=== PATIENT | female | born 1995 | race Caucasian/White ===

== ENCOUNTER 2018-09-15 08:00 | Outpatient (CLI) | payer OTHER ==
[2018-09-15 22:13] LABS: TRICHOMONAS VAGINALIS DNA NEGATIVE (NEGATIVE)
== END 2018-09-15 23:59 | disposition home or self-care (01) ==
LOC: LAB.R 08:00
PROVIDERS: ATTEND Obstetrics & Gynecology
DX: Z34.83 Encounter for supervision of other normal pregnancy, third trimester (principal)
CPT/HCPCS: 87491; 87591; 87661; 87797

== ENCOUNTER 2018-09-30 11:36 | Outpatient (CLI) | payer OTHER ==
--- NOTE | 2018-09-30 13:43 | Ultrasound Report ---
Reason: SMALL FOR GESTATIONAL AGE Procedure Date: 09/30/2018 Accession Number: [id number] / [id number] Procedure: US - OB F/U or Repeat CPT Code: FULL RESULT: EXAM: FOLLOW-UP OBSTETRICAL ULTRASOUND EXAM DATE: 09/30/2018 01:14 PM. CLINICAL HISTORY: SMALL FOR GESTATIONAL AGE. COMPARISON: None. TECHNIQUE: Real-time sonographic evaluation of the fetus performed by the stringing machine tender. Multiple airline security representative static images were saved for review. DATING: Established EGA 39 weeks 0 days with AUDI 10/07/2018 based on her clinical dating. GENERAL EVALUATION Chaves . Cardiac activity: 152 bpm. movement: Visualized. Presentation: Vertex Placenta: Posterior maternal right-sided position. Amniotic fluid: Normal. YOSELIN 15.2 cm. MVP 4.3 cm. BIOMETRY Bi-Parietal Diameter (BPD): 9.2 cm, 37 weeks 1 day Head Circumference (HC): 33.7 cm, 38 weeks 5 days Abdominal Circumference (AC): 34.9 cm, 38 weeks 5 days Femur Length (FL): 7.1 cm, 36 weeks 2 days Estimated Weight: 3374 g, 44th percentile for age. IMPRESSION: 1. Estimated weight 3374 g. 2. Normal amniotic fluid volume. Vertex position. RADIA
== END 2018-09-30 11:37 | disposition home or self-care (01) ==
LOC: DI 11:36
PROVIDERS: ATTEND Obstetrics & Gynecology
DX: O36.5930 Maternal care for other known or suspected poor fetal growth, third trimester, not applicable or unspecified (principal); Z3A.39 39 weeks gestation of pregnancy
CPT/HCPCS: 76816

== ENCOUNTER 2018-10-09 10:15 | Emergency (ER) | payer OTHER ==
[2018-10-09] MEDS ORDERED: LIDOCAINE VISCOUS 2% 15 ML UDC MM STA (10:30)
[2018-10-09] MEDS ORDERED: MAG HYDROX/AL HYDROX/SIMETH 30 ML UDC PO STA (10:30)
--- NOTE | 2018-10-09 10:33 | ED Physician Documentation ---
PD HPI CHEST PAIN - Stated complaint Stated Complaint: CHEST PX/40 WKS - History obtained from History obtained from: Patient - History of Present Illness Timing - onset: Today, Yesterday Timing - onset during: Eating Pain level max: 5 Pain level now: 1 Quality: Pain Location: Substernal, Epigastric Associated symptoms: Nausea - Additional information Additional information: The patient is a 23-year-old female at 40 weeks gestation who presents with epigastric and substernal chest pain that started this morning after eating a banana. She states it feels "like gas that I cannot get out." She had a similar episode yesterday that resolved after taking Zantac. She denies cough, vomiting, fever, or shortness of breath. Her pain now is mild compared to what it was at home. She reports mild abdominal cramping, without vaginal bleeding. Review of Systems Constitutional: denies: Fever Nose: denies: Congestion Throat: denies: Sore throat Cardiac: reports: Chest pain / pressure Respiratory: denies: Dyspnea, Cough GI: reports: Nausea. denies: Abdominal Pain, Vomiting : reports: Now EGA (40 weeks gestation). denies: Dysuria, Vaginal bleeding Skin: denies: Rash Musculoskeletal: denies: Extremity pain Neurologic: denies: Headache PD PAST MEDICAL HISTORY - Past Medical History Endocrine/Autoimmune: None - Allergies Allergies/Adverse Reactions: Allergies Allergy/AdvReac Type Severity Reaction Status Date / Time No Known Drug Allergies Allergy Verified 10/09/18 10:42 - Social History Does the pt smoke?: No PD ED PE NORMAL - Vitals Vital signs reviewed: Yes - General General: Alert and oriented X 3, Well developed/nourished - HEENT HEENT: Atraumatic, Pharynx benign - Neck Neck: No adenopathy, No JVD - Cardiac Cardiac: RRR - Respiratory Respiratory: No respiratory distress, Clear bilaterally - Abdomen Abdomen: Soft, Non tender, Other (Gravid with normal heart rate of 154.) - Back Back: No CVA TTP - Derm Derm: No rash - Extremities Extremities: No edema, No calf tenderness / cord - Neuro Neuro: Alert and oriented X 3, No motor deficit, Normal speech Results - Vitals Vitals: Vital Signs - 24 hr 10/09/18 10/09/18 10:26 10:48 Temperature 36.6 C Heart Rate 83 84 Respiratory 16 16 Rate Blood Pressure 144/96 H 128/89 H O2 Saturation 98 98 Oxygen O2 Source Room air - EKG (time done) 10:20 Rate: Rate (enter#) (79) Rhythm: NSR [place]: Normal Intervals: Normal [place] QRS: Normal Ischemia: Normal ST segments Computer interpretation: Agree with computer PD MEDICAL DECISION MAKING - ED course Complexity details: re-evaluated patient, considered differential, d/w patient, d/w family ED course: The patient's presentation is most consistent with gastroesophageal reflux. Her electrocardiogram is normal. Her presentation does not suggest pulmonary embolus or pneumonia. Treatment in the emergency department included administration of GI cocktail, which completely relieved her symptoms after causing her to belch. She is being discharged to go directly to labor and delivery for heart monitoring. I discussed with her and her the diagnosis, symptomatic treatment, as well as potentially worrisome signs or symptoms that should prompt reevaluation in the emergency department. Departure - Departure Disposition: 01 Home, Self Care Clinical Impression: and not yet delivered in third trimester GERD (gastroesophageal reflux disease) Qualifiers: Esophagitis presence: esophagitis presence not specified Qualified Code(s): K21.9 - Gastro-esophageal reflux disease without esophagitis Condition: Stable Instructions: ED GERD Follow-Up: Stacie Haines MD [Provider Admit Priv/Credential] - Comments: If you develop recurrent symptoms try drinking liquid antacid, like Maalox or Mylanta. 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 Return to the emergency department if you develop increasing chest pain, shortness of breath, persistent vomiting, or otherwise worsening symptoms. Discharge Date/Time: 10/09/18 11:04
[2018-10-09 10:49] VITALS: BP 128/89
== END 2018-10-09 11:04 | disposition home or self-care (01) ==
LOC: ED 10:15
DX: O99.613 Diseases of the digestive system complicating pregnancy, third trimester (principal); K21.9 Gastro-esophageal reflux disease without esophagitis; Z3A.40 40 weeks gestation of pregnancy
CPT/HCPCS: 93005; 99283; A9270

== ENCOUNTER 2018-10-09 11:09 | Outpatient (CLI) | payer OTHER ==
[2018-10-09 12:17] VITALS: BP 128/89
--- NOTE | 2018-10-14 15:48 | PROVIDER PROGRESS NOTE ---
- HPI Chief Complaint: Labor Check Current : Current EDU 10/07/18 Gestation 40 Weeks and 2 Days 2 Para 1 Vital Signs Heart Rate 84 10/09/18 11:10 Respiratory Rate 16 10/09/18 11:10 Blood Pressure 128/89 H 10/09/18 11:10 Temperature Heart Rate 84 10/09/18 11:10 Respiratory Rate 16 10/09/18 11:10 Blood Pressure 128/89 H 10/09/18 11:10 O2 Saturation - Procedures OB Procedure Performed: NST Diagnosis/Indication for NST: Other NST Procedure: NST Procedure Start Date 10/09/18 Start Time 11:08 Stop Time 11:38 Vibroacoustic Stimulation Used No Patient States Movement Yes Service Date of procedure: 10/09/18 Procedure Details: Labor check. Cx 3/80/-2 - Plan Plan: Pt is not currently in labor. Home. return PRN
== END 2018-10-09 12:00 | disposition home or self-care (01) ==
LOC: WFO 11:09 → FBP 11:10 → WFO 12:00
PROVIDERS: ATTEND Obstetrics & Gynecology
DX: Z34.83 Encounter for supervision of other normal pregnancy, third trimester (principal)
CPT/HCPCS: 99213

== ENCOUNTER 2018-10-12 13:30 | Inpatient (IN) | payer OTHER ==
[2018-10-12] MEDS ORDERED: SODIUM CHLORIDE FLUSH 0.9% 10 ML SYRINGE ONE ×2 (13:51→18:42)
[2018-10-12] MEDS ORDERED: SODIUM CHLORIDE FLUSH 0.9% 10 ML SYRINGE IVP PRN ×2 (14:41→14:45)
[2018-10-12] MEDS ORDERED: ONDANSETRON ODT 4 MG TABLET TL PRN (14:45)
[2018-10-12] MEDS ORDERED: CARBOPROST TROMETHAMINE 250 MCG/ML AMP IM PRN (14:45)
[2018-10-12] MEDS ORDERED: ONDANSETRON 4 MG/2 ML VIAL IVP PRN (14:45)
[2018-10-12] MEDS ORDERED: miSOPROStol 200 MCG TABLET PR ONE (14:45)
[2018-10-12] MEDS ORDERED: AMPICILLIN 2 GM in SODIUM CHLORIDE 0.9% MINIBAG 100 ML IV ONE (14:45)
[2018-10-12] MEDS ORDERED: METOCLOPRAMIDE 10 MG/2 ML VIAL IVP PRN (14:45)
[2018-10-12] MEDS ORDERED: miSOPROStol 200 MCG TABLET PR PRN (14:45)
[2018-10-12] MEDS ORDERED: OXYTOCIN/SODIUM CHLORIDE 500 ML IV PRN (14:45)
[2018-10-12] MEDS ORDERED: fentaNYL 100 MCG/2 ML VIAL IVP PRN (14:45)
[2018-10-12] MEDS ORDERED: METOCLOPRAMIDE 10 MG TABLET PO PRN (14:45)
[2018-10-12 14:54] LABS: BASOPHILS % (AUTO) 0.4 %; EOSINOPHILS % (AUTO) 0.4 %; HGB - HEMOGLOBIN 13.4 g/dL (12.0-16.0); LYMPHOCYTES # (AUTO) 2.4 10^3/uL (1.5-3.5); LYMPHOCYTES % (AUTO) 22.1 %; MEAN CORPUSCULAR HEMOGLOBIN 28.6 pg (27.0-31.0); MEAN CORPUSCULAR HGB CONC 33.2 g/dL (32.0-36.0); MEAN CORPUSCULAR VOLUME 86.1 fL (81.0-99.0); MEAN PLATELET VOLUME 11.7 fL (7.9-10.8); MONOCYTES # (AUTO) 0.6 10^3/uL (0.0-1.0); MONOCYTES % (AUTO) 5.5 %; NEUTROPHILS # (AUTO) 7.8 10^3/uL (1.5-6.6); NEUTROPHILS % (AUTO) 70.9 %; PLT - PLATELET COUNT 245 10^3/uL (130-450); RED BLOOD COUNT 4.69 10^6/uL (4.20-5.40); RED CELL DISTRIBUTION WIDTH 13.3 % (12.0-15.0); WHITE BLOOD COUNT 10.9 x10^3/uL (4.8-10.8)
[2018-10-12] MEDS ORDERED: LACTATED RINGERS 1,000 ML IV SCH ×3 (15:00→22:00)
[2018-10-12 15:34] LABS: URIC ACID 3.2 mg/dL (2.6-7.2)
--- NOTE | 2018-10-12 15:37 | HISTORY & PHYSICAL EXAMINATION ---
Admit History - Visit Reason Visit Reason: Other (Intrauterine at 40 weeks 5 days gestation,Elevated blood pressure) - : 2 Parity: 1 Premature: 0 Ectopic: 0 : 0 Care: positive: Xiang Risk/History: positive: None Complications This : positive: None Smoking Status: Never smoker - Mother's Labs Mother's Blood Type: positive: O Mother's RH: positive: Positive GBS: positive: Group B Strep Positive Rubella Status: positive: Non-immune (The patient is a well-developed, well-nourished, 23-year-old white female who is 2 para 1-0-0-1 with a menstrual index of . She has an AUDI of 10/07/2018 and making her approximately 40 weeks and 5 days gestation today.The patient had had problems with heartburn over the weekend. She came to the office today for evaluation. She had 2 diastolicsAt 90 and 95 and therefore given her gestational age was sent for induction of labor. Prior to this she has not had any problems with this . She does have a history of fast labors. She stated from the onset of labor to the delivery of her first child was only 4 hours. She is GBS positive blood type O+ and rubella nonimmune.She transferred to our clinic at approximately 32 weeks gestation.) Meds/Allgy - Allergies Allergies/Adverse Reactions: Allergies Allergy/AdvReac Type Severity Reaction Status Date / Time No Known Drug Allergies Allergy Verified 10/09/18 10:42 Review of Systems - Constitutional Constitutional: denies: Fatigue, Fever, Chills, Malaise, Weakness - Eyes Eyes: denies: Pain, Irritation, Amaurosis, Blurred vision, Spots in vision - Ears, Nose & Throat Ears, Nose & Throat: denies: Ear pain, Hearing loss, Tinnitus, Vertigo, Nasal pain, Nosebleeds, Dentures, Sore throat, Hoarseness - Cardiovascular Cariovascular: denies: Irregular heart rate, Palpitations, Chest pain, Edema - Respiratory Respiratory: denies: Cough, Sputum production, Wheezing, Hemoptysis, Orthopnea - Gastrointestinal Gastrointestinal: reports: Reflux/heartburn. denies: Abdominal pain, Abdominal distention, Constipation, Diarrhea, Nausea, Vomiting - Genitourinary Genitourinary: denies: Dysuria, Frequency, Urgency, Hematuria - Musculoskeletal Musculoskeletal: denies: Muscle pain, Back pain, Muscle aches, Stiffness, Muscle weakness - Integumentary Integumentary: denies: Rash, Pruritis, Lesions, Lumps, Pigment changes - Neurological Neurological: denies: General weakness, Focal weakness, Headache, Dizziness, Numbness - Psychiatric Psychiatric: denies: Depression, Delusions - Endocrine Endocrine: denies: Polyuria, Polydypsia, Polyphagia, Intolerance to cold, Intolerance to heat - Hematologic/Lymphatic Hematologic/Lymphatic: denies: Bruising, Petechiae, Blood clots, Lymphadenopathy Physical - Abdominal Exam Vital Signs: Temp Pulse Resp BP Pulse Ox 36.8 C 71 16 120/81 H 100 10/12/18 14:05 10/12/18 14:05 10/12/18 14:05 10/12/18 14:05 10/12/18 14:05 Contraction Frequency (min/apart): None - Monitoring Heart Rate Baseline: Reactive NST as noted. - Presentation Presentation: positive: Vertex - Vaginal Exam Membranes: positive: Membranes intact Dilation (in cm): 4 Effacement (%): 50 Station: positive: -2 Cervical Position: positive: Posterior - Speculum Exam Speculum Exam Performed: positive: No Plan for Labor - Plan For Labor Plan for Labor: Impression: Intrauterine at 40 weeks 5 days gestation. Induction of labor Plan: Since the patient seems to be stable, as does the fetus. There is a reactive NST noted. It does seem that there is no need to edouard this induction. We will therefore wait until we have a dose of antibiotics on board. At that time we will rupture membranes. I think that is probably all we will need to do if not we can augment with Pitocin.
--- NOTE | 2018-10-12 16:56 | PROVIDER PROGRESS NOTE ---
Labor Progress Note - Labor Progress Note Labor Progress Note/Additional Text: The patient is now had 2 g of ampicillin IV. An amniotomy was performed with a small amount of clear fluid returned.The fetus remains reactive. There have been a few irregular contractions. The cervix is again 4 cm dilated about 80% effaced-2.A category 1 EFM is noted. We will see if contractions ensue over the next hour. If not we will augment with Pitocin.
[2018-10-12] MEDS ORDERED: miSOPROStol 100 MCG TABLET VG SCH (17:00)
[2018-10-12] MEDS ORDERED: SODIUM CHLORIDE FLUSH 0.9% 10 ML SYRINGE IVP SCH (17:00)
--- NOTE | 2018-10-12 18:07 | PROVIDER PROGRESS NOTE ---
Labor Progress Note - Labor Progress Note Labor Progress Note/Additional Text: Patient cervix remains the same.She is only having some occasional mild contractions. There is still category 1 EFM noted. We will therefore start some Pitocin.The patient is in agreement with this plan.
[2018-10-12] MEDS ORDERED: OXYTOCIN/SODIUM CHLORIDE 500 ML IV SCH (19:00)
--- NOTE | 2018-10-12 20:05 | PROVIDER PROGRESS NOTE ---
Labor Progress Note - Labor Progress Note Labor Progress Note/Additional Text: The patient is now salo about every 1 to 2 minutes. These are firm. There is still a category 1 EFM noted. The patient's cervix is now 6 cm 80% effaced -2. The cervix remains posterior however.The Pitocin drip is only at 1 milliunit/min.The patient appears to be tolerating labor well.We will continue to follow her closely.
[2018-10-12] MEDS ORDERED: fent/BUPIV 2 MCG/0.125% 0 ML EP ONE (20:34)
[2018-10-12] MEDS ORDERED: AMPICILLIN 1 GM in SODIUM CHLORIDE 0.9% MINIBAG 100 ML IV SCH (21:00)
--- NOTE | 2018-10-12 21:00 | DELIVERY NOTE ---
Delivery Note - Labor Labor: positive: Augmented by oxytocin, Induced by ARM - Delivery Method Infant Delivery Method: positive: Spontaneous vaginal delivery - Presentation Presentation: positive: Vertex, JENNY - left occiput anterior - Nuchal Cord Nuchal Cord: positive: None - Amniotic Fluid Description Amniotic Fluid Description: positive: Clear - Episiotomy Type Episiotomy Type: positive: None - Laceration Laceration: positive: None - Delivery Outcome Delivery Outcome: positive: Livebirth - Vance : positive: Placed in direct skin contact with mother sex: positive: Male - Cord Cord: positive: 3 vessels - Placenta Placenta: positive: Intact, Spontaneous - Estimated Blood Loss Estimated Blood Loss (in cc): 400 - Post Delivery Events Post Delivery Events: positive: No post delivery events - Delivery Comments (Free Text/Narrative) Delivery Comments (Free Text/Narrative): The patient had been brought in for an induction due to a small elevation in the office of diastolics in the 90s. When she came to OB however her blood pressures remain normal and stable throughout her induction. Membranes were ruptured and she was observed for an hour or so to see if contractions would ensue. Her cervix was 4 cm dilated at the start of the induction. She was having just irregular very mild contractions and there and therefore a Pitocin drip was started. All she needed was 1 milliunits/min of Pitocin to get adequate contractions which are firm occurring every 2 to 3 minutes. At that point she rapidlyDilated to complete.She was found to be complete with respect to cervical dilatation approximately 20 39 hours. At this point in time the fetus was at a +1 to +2 station. Delivery summary: The patient reached complete with respect to cervical dilatation and approximately 20 39 hours. The fetus was at a +1 to +2 station. She began with expulsive Tory efforts. At 20 41 hours she delivered a viable male over an intact perineum.Upon delivery of the head the neck was checked for any circum-nuchal cord no was noted. The rest was then delivered in JENNY presentation. Upon full delivery the was crying lustily. After a little over a minute the cord was then doubly clamped. The cord was then divided by the father of the baby. The was then placed on the mother's chest. The was skin to skin at that point. A sample of the cord blood was then obtained and sent for evaluation. The placenta was then delivered intact at approximately 20 4700 hours. 20s Pitocin IV drip were given at that time. The uterus slowly began to contract down firmly. This firmed up quite well with Crede. The cervix and vaginal vault were inspected. The cervix was intact. At the posterior commissure there was a small laceration hrough the mucosa, not more than a mm deep, but no bleeding was noted. It was felt that no suture material was needed to approximated it was less than a centimeter long.The is a viable male whose weight is pending at present time. He had Apgars of 9 and 10 at 105 minutes respectively. Both the and the patient were allowed to remain in the LDRP both in satisfactory condition.Estimated blood loss was approximately 400 mL's.
[2018-10-12] MEDS ORDERED: WITCH HAZEL/GLYCERIN 1 PAD TOP PRN (21:15)
[2018-10-12] MEDS ORDERED: ACETAMINOPHEN 325 MG TABLET PO PRN (21:15)
[2018-10-12] MEDS ORDERED: ZOLPIDEM 5 MG TABLET PO PRN (21:15)
[2018-10-12] MEDS: IBUPROFEN 600 MG TABLET PO SCH (21:55)
[2018-10-13] MEDS: IBUPROFEN 600 MG TABLET PO SCH ×4 (03:46→22:27)
--- NOTE | 2018-10-13 07:10 | PROVIDER PROGRESS NOTE ---
Subjective - Prog Note Date Prog Note Date: 10/13/18 Prog Note Time: 07:08 - Subjective Subjective: The patient is doing well this morning. She did notes her lochia to be light. She is really without complaint. She is breast-feeding well. She is ambulating well Objective - Vital Signs/Intake & Output Vital Signs: Vital Signs x48h Temp Pulse Resp BP Pulse Ox 10/13/18 05:30 36.9 C 69 16 117/72 100 10/13/18 01:07 36.8 C 76 18 112/71 100 10/13/18 00:04 78 111/73 Intake & Output: Intake & Output 10/10/18 10/11/18 10/12/18 10/13/18 23:59 23:59 23:59 23:59 Intake Total 102.933 Output Total 400 Balance 102.933 -400 - Lab Results Fish Bones: 10/12/18 13:50 Other Labs: Lab Results x24hrs 10/12/18 10/12/18 10/12/18 Range/Units 15:10 13:50 13:50 WBC (4.8-10.8) x10^3/uL RBC (4.20-5.40) 10^6/uL Hgb (12.0-16.0) g/dL Hct (37.0-47.0) % MCV (81.0-99.0) fL MCH (27.0-31.0) pg MCHC (32.0-36.0) g/dL RDW (12.0-15.0) % Plt Count (130-450) 10^3/uL MPV (7.9-10.8) fL Neut # (Auto) (1.5-6.6) 10^3/uL Lymph # (Auto) (1.5-3.5) 10^3/uL [place] # (Auto) (0.0-1.0) 10^3/uL Eos # (Auto) (0.0-0.7) 10^3/uL Baso # (Auto) (0.0-0.1) 10^3/uL Absolute Nucleated RBC x10^3/uL Nucleated RBC % /100WBC Uric Acid 3.2 (2.6-7.2) mg/dL AST 18 (10-42) IU/L Lactate Dehydrogenase (91-225) IU/L Blood Type O POSITIVE Blood Type Recheck O POSITIVE Antibody Screen NEGATIVE 10/12/18 10/12/18 Range/Units 13:50 13:50 WBC 10.9 H (4.8-10.8) x10^3/uL RBC 4.69 (4.20-5.40) 10^6/uL Hgb 13.4 (12.0-16.0) g/dL Hct 40.4 (37.0-47.0) % MCV 86.1 (81.0-99.0) fL MCH 28.6 (27.0-31.0) pg MCHC 33.2 (32.0-36.0) g/dL RDW 13.3 (12.0-15.0) % Plt Count 245 (130-450) 10^3/uL MPV 11.7 H (7.9-10.8) fL Neut # (Auto) 7.8 H (1.5-6.6) 10^3/uL Lymph # (Auto) 2.4 (1.5-3.5) 10^3/uL [place] # (Auto) 0.6 (0.0-1.0) 10^3/uL Eos # (Auto) 0.0 (0.0-0.7) 10^3/uL Baso # (Auto) 0.0 (0.0-0.1) 10^3/uL Absolute Nucleated RBC 0.00 x10^3/uL Nucleated RBC % 0.0 /100WBC Uric Acid (2.6-7.2) mg/dL AST (10-42) IU/L Lactate Dehydrogenase 141 (91-225) IU/L Blood Type Blood Type Recheck Antibody Screen - Other Results/Comments Other Results/Comments: Abdomen: The abdomen is soft, pliable and non-tender. Uterus:The uterus is firm and nontender approximately 1 fb below the umbilicus. Assessment/Plan - Problem List (1) and not yet delivered in third trimester Impression: Impression: day #1-stable Plan:The patient will continue with her routine care today. As long she does well discharge is anticipated tomorrow.
[2018-10-13] MEDS: SODIUM CHLORIDE FLUSH 0.9% 10 ML SYRINGE IVP SCH ×4 (07:44→18:27)
[2018-10-13] MEDS: DOCUSATE SODIUM 100 MG CAPSULE PO SCH ×2 (09:56→21:08)
[2018-10-13] MEDS ORDERED: ACETAMINOPHEN 325 MG TABLET PO PRN (15:48)
[2018-10-14] MEDS: IBUPROFEN 600 MG TABLET PO SCH (04:38)
--- NOTE | 2018-10-14 06:31 | PROVIDER PROGRESS NOTE ---
Subjective - Prog Note Date Prog Note Date: 10/14/18 Prog Note Time: 06:27 - Subjective Subjective: The patient continues to do very well. She is ambulating well and tolerating diet well. She is voiding without difficulty. Lochia is light. She is breast- feeding without difficulty. Objective - Vital Signs/Intake & Output Reviewed Vital Signs: Yes Vital Signs: Vital Signs x48h Temp Pulse Resp BP Pulse Ox 10/14/18 00:15 36.8 C 70 16 121/84 H 99 Intake & Output: Intake & Output 10/11/18 10/12/18 10/13/18 10/14/18 23:59 23:59 23:59 23:59 Intake Total 440.255 5215 Output Total 400 Balance 759.718 8271 - Lab Results Fish Bones: 10/12/18 13:50 - Other Results/Comments Other Results/Comments: Abdomen: Abdomen is soft, pliable and nontender.It is not distended. Uterus: The uterus is firm and nontender 2 fingerbreadths Below the umbilicus. Assessment/Plan - Problem List (1) and not yet delivered in third trimester Impression: Delivery at 40 weeks 5 days gestation day #2-stable Plan: The patient will be discharged home.She was given the following both written and verbal instructions: 1. She is to forego any lifting, tampons, douching or intercourse 2. She is to report any temperatures greater than 100.4 or heavy vaginal bleeding 3. She is to continue her vitamins and increase her fluids 4. She may use ibuprofen 600 mg p.o. 3 times daily as needed for cramping as well as acetaminophen 5. She is not to drive a car for the next 2 weeks. 6. As long as she does well we will see her in the office in 1 week. We will see her back in 6 weeks for full check.She knows to call sooner if she has problems.
--- NOTE | 2018-10-14 07:53 | DISCHARGE SUMMARY ---
Physician: Christo Romano DO DATE OF ADMISSION: 10/12/2018 DATE OF DISCHARGE: 10/14/2018 ADMITTING DIAGNOSIS: Intrauterine at 40 weeks 5 days' gestation. DISCHARGE DIAGNOSIS: Delivery at 40 weeks 5 days' gestation. PROCEDURE: Induction of labor. LABORATORIES: At admit uric acid was 3.2, AST was 18. Lactate dehydrogenase was 141. CBC revealed WBCs at 10.9, RBCs of 4.69, hemoglobin 13.4, hematocrit 40.4 with 245 platelets. HOSPITAL COURSE Patient was transferred from the office to the labor and delivery floor for evaluation at 40 weeks 5 days' gestation due to an elevated diastolic over 90 in the office. Upon arrival, all of her labs were unremarkable. She was actually without any complaint. Her blood pressures were stable. They were not at an elevated range. However, due to the fact that the patient had extremely fast labors and that she was 40 weeks 5 days' gestation, it was felt that the patient could be kept for an induction of labor. She did wish to do this. She was therefore admitted. Upon arrival, her cervix was 4 cm dilated, 50% effaced, and -2 station. She was GBS positive, and therefore it was given a dosed of Nexium and was started on IV ampicillin. She had a full dose of a loading dose of ampicillin 2 grams. This was prior to the induction starting. Once that was in, an amniotomy was performed with return of just a small amount of fluid. This gave her some irregular contractions over the next hour. She was then started on Pitocin augmentation and rapidly went on to deliver a viable male over an intact perineum. Refer to the delivery note for full details. He had Apgars of 9 and 10 at one and five minutes respectively. She then recovered quite well. It is of note that she recovered quite well on her first day. She was ambulating well, tolerating diet well. She was without difficulty. Lochia was light. The uterus is firm and nontender at 1 fingerbreadth below the umbilicus. On her second day, she continued to do very well. Vital signs are stable. She is afebrile. The uterus was firm and nontender, 2 fingerbreadths below the umbilicus. Again, she was without difficulty and lochia was light. The patient did wish to discharge. It was felt the patient was safe and could be safely discharged to home. DISCHARGE INSTRUCTIONS The patient was discharged to home with both written and verbal instructions including such things as: 1. She is to forego any lifting, tampons, douching, or intercourse. 2. She is to report any temperatures greater than 100.4 or heavy vaginal bleeding. 3. She is not to drive a car for the next 2 weeks. 4. She is to increase her fluids and continue her vitamins. 5. She may use ibuprofen for cramping as 600 mg p.o. t.i.d. p.r.n. She may use acetaminophen as she needs to for headaches. 6. She will be seen in the office in 1 week for an initial assessment and then in a full 6 weeks for her complete exam. TD: 10/14/2018 06:44 BEVERLY
[2018-10-14] MEDS: DOCUSATE SODIUM 100 MG CAPSULE PO SCH (08:00)
[2018-10-14 08:12] VITALS: BP 119/78
--- NOTE | 2018-10-14 11:59 | Labor Flowsheet ---
Labor Flowsheet Datetime Report Generated by CPN: 10/14/2018 11:59 Datetime: 10/14/2018 07:37 VITAL SIGNS NBP Sys/Mayra/Mean (mmHg): 119 : 78 : 87 Pulse: 61 LaborFlag: Labor Datetime: 10/13/2018 05:29 SpO2 (%): 100 Datetime: 10/12/2018 20:41 UTERINE ACTIVITY Monitor Mode: External Frequency (min): 1.5-2.5 Quality: Strong Duration (sec): 60-140 Pattern: Normal: <= 5 Contractions in 10 Minutes Resting Tone (Palpate): Relaxed ASSESSMENT A Monitor Mode: External US Variability: Moderate 6-25 bpm Comments: indeterminate baseline d/t poor tracing; maternal movement, thrashing; multiple attemtps at readjusting US Datetime: 10/12/2018 20:39 VAGINAL EXAM Dilatation (cm): 10.0 Effacement (%): 100 Exam by: Dr. Juan Antonio STAGE 2 Pushing: Urge to Push; Involuntary Pushing Pushing Position: Pushing with Contractions Pushing Progress: Descent with Pushing; Perineal Bulging Datetime: 10/12/2018 20:35 Monitor Interventions for FHR: Ultrasound Adjusted Datetime: 10/12/2018 20:30 Patient Position/Activity: Semi-Fowlers TEACHING Instructional Method: Verbal Plan of Care: Plan of Care Discussed Unit Routine: Medications Labor/Induction: Activity Pain Management: Epidural Related: Activity and Rest Datetime: 10/12/2018 20:19 Patient Care Comments: pt leaning over side of bed, swaying and occasional squatting to the floor Datetime: 10/12/2018 20:14 PAIN Pain Scale: 8 Pain Presence: Intermittent Pain Type: Contraction Pain Location: Abdomen Pain Coping: Breathing Through Contractions; Requesting Pain Medication or Epidural COMMUNICATION Communication: Call/Page Placed to Provider Datetime: 10/12/2018 20:11 Antibiotics: Ampicillin IV 1 Gm Medication Comments: NITROUS ON Datetime: 10/12/2018 20:08 Provider Notified (Name): Dr. Juan Antonio Communication Comments: Provider in house; received a verbal okay to use nitrous Datetime: 10/12/2018 20:02 Station: -2 Cervix, Position: Posterior Datetime: 10/12/2018 20:00 FHR Baseline Rate : 145 Accelerations: 15X15 Decelerations: Early; Variable Category: Category II Datetime: 10/12/2018 19:47 I/O Interventions: Up to BR Datetime: 10/12/2018 19:45 Pain Relief Measures: Comfort Measures Pain Assessment Comments: pt declining pain interventions at this time MATERNAL ASSESSMENT Level of Consciousness: Fully Conscious Headache: Denies Breath Sounds, Left: Clear and Equal Breath Sounds, Right: Clear and Equal Nausea/Vomiting: Present Datetime: 10/12/2018 19:32 Temperature (C): 36.8 Datetime: 10/12/2018 19:30 Contraction Comments: poor tracing Datetime: 10/12/2018 19:29 Monitor Interventions for UA: [place] Adjusted Datetime: 10/12/2018 18:44 Pitocin Checklist: At Least 1 Acceleration of 15 bpm x 15 Seconds in 30 Minutes or Adequate Variabi lity; No More than 1 Late Deceleration Occurred in Past 30 Minutes; No More than 2 Variable Decelerat ions > 60 Seconds in Duration and decreasing >60 bpm in 30 minutes; No More than 5 Uterine Contractio ns in 10 Minutes for any 20 Minute Interval; Uterus Palpates Soft between Contractions MEDICATIONS Pitocin (milliunits): Started @ 1 Datetime: 10/12/2018 16:52 Membrane Status: Ruptured Membranes Rupture Method: Artificial Amniotic Fluid Amount: Small Amniotic Fluid Odor: None Datetime: 10/12/2018 16:00 PATIENT CARE IV/Blood Work: IV Started
== END 2018-10-14 10:47 | disposition home or self-care (01) | DRG 807 ==
LOC: WFO 13:30 → FBP 13:33 → WFO 14:40 → FBP 14:41
PROVIDERS: ADMIT Obstetrics & Gynecology; ATTEND Obstetrics & Gynecology
PROC: 10E0XZZ Delivery of Products of Conception, External Approach (ICD-10-PCS; principal; 2018-10-12)
PROC: 10907ZC Drainage of Amniotic Fluid, Therapeutic from Products of Conception, Via Natural or Artificial Opening (ICD-10-PCS; 2018-10-12)
DX: O48.0 Post-term pregnancy (principal); Z37.0 Single live birth; O99.824 Streptococcus B carrier state complicating childbirth; O70.0 First degree perineal laceration during delivery; Z3A.40 40 weeks gestation of pregnancy; Z28.3 Underimmunization status; Z87.898 Personal history of other specified conditions
CPT/HCPCS: 83615; 84450; 84550; 85025; 86850; 86900; 86901; A9270; J7120

== ENCOUNTER 2018-10-19 14:21 | Outpatient (CLI) | payer OTHER ==
[2018-10-19] MEDS: MEASLES,MUMPS & RUBELLA VACC 0.5 ML VIAL SUBQ ONE (14:51)
--- NOTE | 2018-10-19 14:57 | Labor Flowsheet ---
Labor Flowsheet Datetime Report Generated by CPN: 10/19/2018 14:57 Datetime: 10/14/2018 07:37 VITAL SIGNS NBP Sys/Mayra/Mean (mmHg): 119 : 78 : 87 Pulse: 61 LaborFlag: Labor Datetime: 10/13/2018 05:29 SpO2 (%): 100 Datetime: 10/12/2018 20:41 UTERINE ACTIVITY Monitor Mode: External Frequency (min): 1.5-2.5 Quality: Strong Duration (sec): 60-140 Pattern: Normal: <= 5 Contractions in 10 Minutes Resting Tone (Palpate): Relaxed ASSESSMENT A Monitor Mode: External US Variability: Moderate 6-25 bpm Comments: indeterminate baseline d/t poor tracing; maternal movement, thrashing; multiple attemtps at readjusting US Datetime: 10/12/2018 20:39 VAGINAL EXAM Dilatation (cm): 10.0 Effacement (%): 100 Exam by: Dr. Juan Antonio STAGE 2 Pushing: Urge to Push; Involuntary Pushing Pushing Position: Pushing with Contractions Pushing Progress: Descent with Pushing; Perineal Bulging Datetime: 10/12/2018 20:35 Monitor Interventions for FHR: Ultrasound Adjusted Datetime: 10/12/2018 20:30 Patient Position/Activity: Semi-Fowlers TEACHING Instructional Method: Verbal Plan of Care: Plan of Care Discussed Unit Routine: Medications Labor/Induction: Activity Pain Management: Epidural Related: Activity and Rest Datetime: 10/12/2018 20:19 Patient Care Comments: pt leaning over side of bed, swaying and occasional squatting to the floor Datetime: 10/12/2018 20:14 PAIN Pain Scale: 8 Pain Presence: Intermittent Pain Type: Contraction Pain Location: Abdomen Pain Coping: Breathing Through Contractions; Requesting Pain Medication or Epidural COMMUNICATION Communication: Call/Page Placed to Provider Datetime: 10/12/2018 20:11 Antibiotics: Ampicillin IV 1 Gm Medication Comments: NITROUS ON Datetime: 10/12/2018 20:08 Provider Notified (Name): Dr. Juan Antonio Communication Comments: Provider in house; received a verbal okay to use nitrous Datetime: 10/12/2018 20:02 Station: -2 Cervix, Position: Posterior Datetime: 10/12/2018 20:00 FHR Baseline Rate : 145 Accelerations: 15X15 Decelerations: Early; Variable Category: Category II Datetime: 10/12/2018 19:47 I/O Interventions: Up to BR Datetime: 10/12/2018 19:45 Pain Relief Measures: Comfort Measures Pain Assessment Comments: pt declining pain interventions at this time MATERNAL ASSESSMENT Level of Consciousness: Fully Conscious Headache: Denies Breath Sounds, Left: Clear and Equal Breath Sounds, Right: Clear and Equal Nausea/Vomiting: Present Datetime: 10/12/2018 19:32 Temperature (C): 36.8 Datetime: 10/12/2018 19:30 Contraction Comments: poor tracing Datetime: 10/12/2018 19:29 Monitor Interventions for UA: [place] Adjusted Datetime: 10/12/2018 18:44 Pitocin Checklist: At Least 1 Acceleration of 15 bpm x 15 Seconds in 30 Minutes or Adequate Variabi lity; No More than 1 Late Deceleration Occurred in Past 30 Minutes; No More than 2 Variable Decelerat ions > 60 Seconds in Duration and decreasing >60 bpm in 30 minutes; No More than 5 Uterine Contractio ns in 10 Minutes for any 20 Minute Interval; Uterus Palpates Soft between Contractions MEDICATIONS Pitocin (milliunits): Started @ 1 Datetime: 10/12/2018 16:52 Membrane Status: Ruptured Membranes Rupture Method: Artificial Amniotic Fluid Amount: Small Amniotic Fluid Odor: None Datetime: 10/12/2018 16:00 PATIENT CARE IV/Blood Work: IV Started
== END 2018-10-19 14:56 | disposition home or self-care (01) ==
LOC: WFO 14:21 → FBP 14:22 → WFO 14:56
PROVIDERS: ATTEND Obstetrics & Gynecology
DX: Z23 Encounter for immunization (principal)
CPT/HCPCS: 90471

== ENCOUNTER 2020-04-14 10:07 | Outpatient (CLI) | payer OTHER ==
[2020-04-14 17:55] LABS: BASOPHILS % (AUTO) 0.6 %; EOSINOPHILS # (AUTO) 0.1 10^3/uL (0.0-0.7); EOSINOPHILS % (AUTO) 1.5 %; HGB - HEMOGLOBIN 13.8 g/dL (12.0-16.0); LYMPHOCYTES # (AUTO) 1.9 10^3/uL (1.5-3.5); LYMPHOCYTES % (AUTO) 35.1 %; MEAN CORPUSCULAR HEMOGLOBIN 27.4 pg (27.0-31.0); MEAN CORPUSCULAR HGB CONC 30.9 g/dL (32.0-36.0); MEAN CORPUSCULAR VOLUME 88.7 fL (81.0-99.0); MEAN PLATELET VOLUME 10.3 fL (7.9-10.8); MONOCYTES # (AUTO) 0.4 10^3/uL (0.0-1.0); MONOCYTES % (AUTO) 6.7 %; NEUTROPHILS % (AUTO) 55.9 %; PLT - PLATELET COUNT 294 10^3/uL (130-450); RED BLOOD COUNT 5.03 10^6/uL (4.20-5.40); RED CELL DISTRIBUTION WIDTH 12.6 % (12.0-15.0); WHITE BLOOD COUNT 5.4 x10^3/uL (4.8-10.8)
[2020-04-14 19:09] LABS: ALBUMIN 4.6 g/dL (3.2-5.5); ALBUMIN/GLOBULIN RATIO 1.6 (1.0-2.2); BILIRUBIN,TOTAL 0.8 mg/dL (0.2-1.0); CALCIUM 9.1 mg/dL (8.5-10.3); CREATININE 0.6 mg/dL (0.4-1.0); TOTAL PROTEIN 7.5 g/dL (6.7-8.2)
== END 2020-04-14 23:59 ==
LOC: LAB.WCP 10:07
PROVIDERS: ATTEND Physician Assistant
DX: F32.9 Major depressive disorder, single episode, unspecified (principal)
CPT/HCPCS: 36415; 80053; 82306; 84443; 85025

== ENCOUNTER 2021-05-26 09:10 | Outpatient (CLI) | payer OTHER ==
[2021-05-26 13:55] LABS: BILIRUBIN,URINE NEGATIVE (NEGATIVE); GLUCOSE, URINE (UA) NEGATIVE (NEGATIVE); KETONES,URINE (UA) NEGATIVE (NEGATIVE); LEUKOCYTE ESTERASE, URINE NEGATIVE (NEGATIVE); NITRITE,URINE NEGATIVE (NEGATIVE); OCCULT BLOOD,URINE TRACE-INTA (NEGATIVE); PH,URINE 7.5 PH (5.0-7.5); PROTEIN,URINE NEGATIVE (NEGATIVE); UROBILINOGEN,URINE 0.2 (NORMAL) E.U./dL (NORMAL)
[2021-05-26 14:03] LABS: BACTERIA,URINE None Seen /HPF (None Seen); CLARITY,URINE CLEAR (CLEAR); RBC,URINE 0-5 /HPF (0-5); SQUAMOUS EPITHELIAL CELL,UR NONE SEEN (<= Few); WBC,URINE 0-3 /HPF (0-5)
[2021-05-26 14:09] LABS: BASOPHILS # (AUTO) 0.1 10^3/uL (0.0-0.1); EOSINOPHILS # (AUTO) 0.1 10^3/uL (0.0-0.7); HCT - HEMATOCRIT 41.2 % (37.0-47.0); HGB - HEMOGLOBIN 13.1 g/dL (12.0-16.0); LYMPHOCYTES # (AUTO) 1.7 10^3/uL (1.5-3.5); LYMPHOCYTES % (AUTO) 34.9 %; MEAN CORPUSCULAR HEMOGLOBIN 26.8 pg (27.0-31.0); MEAN CORPUSCULAR HGB CONC 31.8 g/dL (32.0-36.0); MEAN CORPUSCULAR VOLUME 84.4 fL (81.0-99.0); MEAN PLATELET VOLUME 10.4 fL (7.9-10.8); MONOCYTES # (AUTO) 0.5 10^3/uL (0.0-1.0); NEUTROPHILS # (AUTO) 2.7 10^3/uL (1.5-6.6); NEUTROPHILS % (AUTO) 53.7 %; PLT - PLATELET COUNT 303 10^3/uL (130-450); RED BLOOD COUNT 4.88 10^6/uL (4.20-5.40); RED CELL DISTRIBUTION WIDTH 13.2 % (12.0-15.0)
[2021-05-26 14:46] LABS: ALBUMIN 4.2 g/dL (3.2-5.5); ALBUMIN/GLOBULIN RATIO 1.4 (1.0-2.2); ALKALINE PHOSPHATASE 54 IU/L (42-121); ALT ALANINE AMINOTRANSFERASE 14 IU/L (10-60); AST ASPARTATE AMINOTRANSFERASE 18 IU/L (10-42); BILIRUBIN,TOTAL 1.1 mg/dL (0.2-1.0); BUN - BLOOD UREA NITROGEN 17 mg/dL (6-20); CARBON DIOXIDE - CO2 27 mmol/L (21-32); CHLORIDE 107 mmol/L (101-111); CHOL/HDL RATIO 2.9 (<4.4); CHOLESTEROL 140 mg/dL; CREATININE 0.6 mg/dL (0.4-1.0); GFR - MDRD 119 (>89); GLUCOSE 88 mg/dL (70-100); HDL CHOLESTEROL 48 mg/dL; LDL CHOLESTEROL,CALCULATED 83 mg/dL; LDL/HDL RATIO 1.7 (<4.4); POTASSIUM 4.5 mmol/L (3.5-5.0); SODIUM 140 mmol/L (135-145); TOTAL PROTEIN 7.1 g/dL (6.7-8.2); TRIGLYCERIDES 44 mg/dL; VLDL CHOLESTEROL 9 mg/dL
[2021-05-26 14:51] LABS: THYROID STIMULATING HORMONE 1.89 uIU/mL (0.34-5.60)
[2021-05-26 15:06] LABS: ESTIMATED AVERAGE GLUCOSE 100 mg/dL (70-100); HEMOGLOBIN A1c% 5.1 % (4.27-6.07)
== END 2021-05-26 09:11 | disposition home or self-care (01) ==
LOC: LAB.N 09:10
PROVIDERS: ATTEND Nurse Practitioner
DX: R53.83 Other fatigue (principal); Z13.220 Encounter for screening for lipoid disorders; E66.9 Obesity, unspecified
CPT/HCPCS: 36415; 80053; 80061; 81001; 83036; 83721; 84443; 85025; 87086

== ENCOUNTER 2021-10-09 08:41 | Emergency (ER) | payer OTHER ==
--- NOTE | 2021-10-09 09:06 | ED Physician Documentation ---
PD HPI FEMALE - Stated complaint Stated Complaint: ABD PAIN/NAUSEA - Chief complaint Chief Complaint: Abd Pain - History obtained from History obtained from: Patient - Additional information Additional information: took misoprostol on August 27 at 6 weeks gestation. Had cramping and bleeding the next day and is continued to have some bleeding ever since but had more severe cramping with this morning and a single gush of blood yesterday. Review of Systems Ten Systems: 10 systems reviewed and negative Constitutional: reports: Reviewed and negative Cardiac: reports: Reviewed and negative Respiratory: reports: Reviewed and negative PD PAST MEDICAL HISTORY - Past Medical History Endocrine/Autoimmune: None - Present Medications Home Medications: Ambulatory Orders Medication Instructions Recorded Confirmed miSOPROStoL [Misoprostol] 800 mcg BC ONCE #4 tablet 10/09/21 - Allergies Allergies/Adverse Reactions: Allergies Allergy/AdvReac Type Severity Reaction Status Date / Time No Known Drug Allergies Allergy Verified 10/09/21 08:54 - Social History Does the pt smoke?: No Smoking Status: Never smoker PD ED PE NORMAL - Vitals Vital signs reviewed: Yes - General General: Alert and oriented X 3, No acute distress - Cardiac Cardiac: RRR, No murmur - Respiratory Respiratory: No respiratory distress, Clear bilaterally - Abdomen Abdomen: Normal bowel sounds, Soft, Non tender - Back Back: No CVA TTP, No spinal TTP - Derm Derm: Normal color, Warm and dry - Extremities Extremities: No edema, No calf tenderness / cord - Neuro Neuro: Alert and oriented X 3, Normal speech Results - Vitals Vitals: Vital Signs - 24 hr 10/09/21 10/09/21 08:55 10:55 Temperature 37.2 C 36.6 C Heart Rate 89 74 Respiratory 16 14 Rate Blood Pressure 138/73 H 127/73 O2 Saturation 99 100 Oxygen O2 Source Room air - Labs Labs: Laboratory Tests 10/09/21 10/09/21 10/09/21 09:10 09:10 09:10 WBC 19.0 H RBC 4.87 Hgb 13.6 Hct 41.6 MCV 85.4 MCH 27.9 MCHC 32.7 RDW 12.8 Plt Count 320 MPV 9.5 Neut # (Auto) 17.0 H Lymph # (Auto) 1.2 L [place] # (Auto) 0.6 Eos # (Auto) 0.0 Baso # (Auto) 0.1 Absolute Nucleated RBC 0.00 Nucleated RBC % 0.0 Sodium 135 Potassium 3.7 Chloride 102 Carbon Dioxide 25 Anion Gap 8.0 BUN 15 Creatinine 0.7 Estimated GFR (MDRD) 100 Glucose 96 Calcium 9.1 Total Bilirubin 0.7 AST 16 ALT 12 Alkaline Phosphatase 60 Total Protein 7.8 Albumin 4.6 Globulin 3.2 Albumin/Globulin Ratio 1.4 HCG, Quant 2132.00 PD MEDICAL DECISION MAKING - ED course ED course: 26-year-old woman presents 2 weeks after a medical Elective with new pain. She has been bleeding ever since. Her beta-hCG is 2132 and she has an empty uterus on ultrasound. She states that she did have an [facility] at [facility] confirming IUP prior to the administration of misoprostol. Case discussed by phone with Dr. Dooley who recommended repeating the misoprostal 800 mcg today and tomorrow buccally and follow-up in the office to trend her beta hCGs. Departure - Departure Disposition: 01 Home, Self Care Clinical Impression: Missed Condition: Good Record reviewed to determine appropriate education?: Yes Instructions: ED Miscarriage Incom Follow-Up: [facility] [Provider Group] Prescriptions: miSOPROStoL [Misoprostol] 800 mcg BC ONCE #4 tablet Comments: Today you were seen for pelvic pain in the setting of recent Elective . Your beta-hCG is 2132. I discussed her case by phone with Dr. Cruz our collar packer on-call who recommends 800Micrograms of misoprostol today and to be repeated tomorrow. We gave her the dose here and a prescription for the other dose. They will want you to follow-up with them to make sure that your beta hCGs are trending down to or near 0. Return if worsening. I did give her your demographic information and I expect their office to call you, if you have not heard from them by call the number on this form for follow-up. Discharge Date/Time: 10/09/21 11:38
[2021-10-09 09:19] LABS: BASOPHILS # (AUTO) 0.1 10^3/uL (0.0-0.1); BASOPHILS % (AUTO) 0.3 %; EOSINOPHILS % (AUTO) 0.1 %; HCT - HEMATOCRIT 41.6 % (37.0-47.0); HGB - HEMOGLOBIN 13.6 g/dL (12.0-16.0); LYMPHOCYTES # (AUTO) 1.2 10^3/uL (1.5-3.5); LYMPHOCYTES % (AUTO) 6.4 %; MEAN CORPUSCULAR HEMOGLOBIN 27.9 pg (27.0-31.0); MEAN CORPUSCULAR HGB CONC 32.7 g/dL (32.0-36.0); MEAN CORPUSCULAR VOLUME 85.4 fL (81.0-99.0); MEAN PLATELET VOLUME 9.5 fL (7.9-10.8); MONOCYTES # (AUTO) 0.6 10^3/uL (0.0-1.0); MONOCYTES % (AUTO) 3.3 %; NEUTROPHILS % (AUTO) 89.4 %; PLT - PLATELET COUNT 320 10^3/uL (130-450); RED BLOOD COUNT 4.87 10^6/uL (4.20-5.40); RED CELL DISTRIBUTION WIDTH 12.8 % (12.0-15.0)
[2021-10-09 09:34] LABS: ALBUMIN 4.6 g/dL (3.2-5.5); ALBUMIN/GLOBULIN RATIO 1.4 (1.0-2.2); BILIRUBIN,TOTAL 0.7 mg/dL (0.2-1.0); CALCIUM 9.1 mg/dL (8.5-10.3); CREATININE 0.7 mg/dL (0.4-1.0); POTASSIUM 3.7 mmol/L (3.5-5.0); TOTAL PROTEIN 7.8 g/dL (6.7-8.2)
[2021-10-09] MEDS ORDERED: miSOPROStoL 200 MCG TABLET BC STA (10:41)
[2021-10-09 10:56] VITALS: BP 127/73
--- NOTE | 2021-10-09 13:31 | Ultrasound Report ---
PROCEDURE: OB First Trimester INDICATIONS: pelvic pain s/p medical OUTSIDE/PRIOR DATING DATA: Last menstrual period (LMP): 08/14/2021. LMP-based estimated date of delivery (AUDI): 05/21/2022. First dating scan (date and location): 10/09/2021. TECHNIQUE: Real-time scanning was performed of the fetus and maternal pelvic organs, with image documentation. COMPARISON: None FINDINGS: The endometrium is thickened measuring 20 mm and is heterogenous. There is no free fluid. No gestatio nal sac is seen. The cervix is closed and measures 3 cm. Measurement variability in dating: +/- 4 weeks by LMP, +/- 7 days by mean sac diameter (use before 6 weeks gestation if crown-rump length not able to be measured), +/- 5 days by crown-rump length (6-12 weeks gestation). IMPRESSION: No gestational sac is identified. If no prior intrauterine gestation has been verified, c annot exclude ectopic . Please correlate with declining quantitative hCG. Reviewed by: Josiah Carlson on 10/09/2021 1:29 PM PDT Approved by: Josiah Carlson on 10/09/2021 1:29 PM PDT Station ID: [id number]
== END 2021-10-09 11:38 | disposition home or self-care (01) ==
LOC: ED 08:41
DX: O02.1 Missed abortion (principal); Z3A.01 Less than 8 weeks gestation of pregnancy
CPT/HCPCS: 36415; 76801; 80053; 84702; 85025; 99282; 99284; A9270

== ENCOUNTER 2021-12-18 12:22 | Outpatient (CLI) | payer OTHER ==
[2021-12-18 18:04] LABS: BASOPHILS % (AUTO) 0.5 %; EOSINOPHILS # (AUTO) 0.2 10^3/uL (0.0-0.7); EOSINOPHILS % (AUTO) 2.4 %; HCT - HEMATOCRIT 41.7 % (37.0-47.0); HGB - HEMOGLOBIN 13.3 g/dL (12.0-16.0); LYMPHOCYTES # (AUTO) 1.8 10^3/uL (1.5-3.5); LYMPHOCYTES % (AUTO) 23.8 %; MEAN CORPUSCULAR HEMOGLOBIN 26.8 pg (27.0-31.0); MEAN CORPUSCULAR HGB CONC 31.9 g/dL (32.0-36.0); MEAN CORPUSCULAR VOLUME 83.9 fL (81.0-99.0); MEAN PLATELET VOLUME 10.6 fL (7.9-10.8); MONOCYTES # (AUTO) 0.7 10^3/uL (0.0-1.0); MONOCYTES % (AUTO) 9.9 %; NEUTROPHILS # (AUTO) 4.7 10^3/uL (1.5-6.6); NEUTROPHILS % (AUTO) 63.3 %; PLT - PLATELET COUNT 320 10^3/uL (130-450); RED BLOOD COUNT 4.97 10^6/uL (4.20-5.40); RED CELL DISTRIBUTION WIDTH 12.3 % (12.0-15.0); WHITE BLOOD COUNT 7.5 x10^3/uL (4.8-10.8)
[2021-12-18 18:17] LABS: ALBUMIN 4.2 g/dL (3.2-5.5); ALBUMIN/GLOBULIN RATIO 1.4 (1.0-2.2); BILIRUBIN,TOTAL 0.7 mg/dL (0.2-1.0); CALCIUM 9.4 mg/dL (8.5-10.3); CREATININE 0.7 mg/dL (0.4-1.0); TOTAL PROTEIN 7.3 g/dL (6.7-8.2)
[2021-12-18 18:38] LABS: HCG,QUALITATIVE BLOOD NEGATIVE
== END 2021-12-18 12:23 | disposition home or self-care (01) ==
LOC: LAB.N 12:22
PROVIDERS: ATTEND Nurse Practitioner
DX: R19.7 Diarrhea, unspecified (principal)
CPT/HCPCS: 36415; 80053; 84703; 85025

== ENCOUNTER 2022-06-19 14:38 | Outpatient (CLI) | payer OTHER ==
[2022-06-20 06:10] LABS: HIV SCREEN 4TH GENERATION Non Reactive (Non Reactive)
[2022-06-20 07:10] LABS: RPR Non Reactive (Non Reactive)
== END 2022-06-19 14:39 | disposition home or self-care (01) ==
LOC: LAB.N 14:38
PROVIDERS: ATTEND Nurse Practitioner
DX: Z20.2 Contact with and (suspected) exposure to infections with a predominantly sexual mode of transmission (principal)
CPT/HCPCS: 36415; 86592; 87389

== ENCOUNTER 2022-11-18 14:46 | Outpatient (CLI) | payer OTHER ==
[2022-11-18 21:26] LABS: CHLAMYDIA TRACHOMATIS DNA NEGATIVE (NEGATIVE); NEISSERIA GONORRHOEAE DNA NEGATIVE (NEGATIVE); TRICHOMONAS VAGINALIS DNA NEGATIVE (NEGATIVE)
[2022-11-21 04:09] LABS: RPR Non Reactive (Non Reactive)
== END 2022-11-18 14:47 | disposition home or self-care (01) ==
LOC: LAB.N 14:46
PROVIDERS: ATTEND Nurse Practitioner
DX: Z20.2 Contact with and (suspected) exposure to infections with a predominantly sexual mode of transmission (principal)
CPT/HCPCS: 36415; 86592; 87491; 87591; 87661